=== PATIENT | male | born 1950 | race African-American/Black ===

== ENCOUNTER 2018-05-23 07:30 | Inpatient (IN) | payer MEDICARE, OTHER ==
[~2018-05-23] VITALS: Ht 175.3 cm; Wt 63.5 kg
[2018-07-03] MEDS ORDERED: ceFAZolin sod 1 GM in NS 55 ML IVPB ONE (12:15)
[2018-07-04] VITALS (14 sets, daily range): BP systolic 120–148; BP diastolic 58–83
[2018-07-04 06:41] LABS: APPEARANCE,URINE CLEAR; BILIRUBIN, URINE NEGATIVE (NEGATIVE); COLOR,URINE PALE YELLOW; GLUCOSE, URINE (UA) NEGATIVE (NEGATIVE); KETONES,URINE NEGATIVE (NEGATIVE); LEUKOCYTE ESTERASE ,URINE 1+ (NEGATIVE); NITRITE,URINE NEGATIVE (NEGATIVE); PH,URINE 6 (4.5-8.0); PROTEIN,URINE 1+ (NEGATIVE); UROBILINOGEN,URINE NORMAL MG/DL (0.0-1.0)
[2018-07-04 06:48] LABS: BASOPHILS % (AUTO) 2.1 % (0.0-2.0); EOSINOPHILS % (AUTO) 1.4 % (0.0-3.0); HEMATOCRIT 39.3 % (42.0-52.0); HEMOGLOBIN 13.4 G/DL (14.2-18.0); LYMPHOCYTES % (AUTO) 45.1 % (20.0-45.0); MEAN CORPUSCULAR VOLUME 87 FL (80-99); MONOCYTES % (AUTO) 10.2 % (1.0-10.0); NEUTROPHILS % (AUTO) 41.2 % (45.0-75.0); PLATELET COUNT 213 K/UL (150-450); RED BLOOD COUNT 4.51 M/UL (4.70-6.10); RED CELL DISTRIBUTION WIDTH 11.7 % (11.6-14.8); WHITE BLOOD COUNT 5.2 K/UL (4.8-10.8)
[2018-07-04 06:55] LABS: ANION GAP 10 mmol/L (5-15); BLOOD UREA NITROGEN 21 mg/dL (7-18); CALCIUM 9.8 MG/DL (8.5-10.1); CARBON DIOXIDE 28 MMOL/L (21-32); CHLORIDE 101 MMOL/L (98-107); CREATININE 0.9 MG/DL (0.55-1.30); POTASSIUM 3.7 MMOL/L (3.5-5.1); SODIUM 139 MMOL/L (136-145)
[2018-07-04] MEDS ORDERED: HYDROCHLOROTHIA25 MG ORAL (06:58)
[2018-07-04] MEDS ORDERED: BENAZEPRIL HCL20 MG ORAL (06:58)
[2018-07-04] MEDS ORDERED: MIRTAZAPINE15 M3 ORAL (06:58)
[2018-07-04] MEDS ORDERED: RISPERDAL2 MG ORAL (06:58)
[2018-07-04] MEDS ORDERED: DIPHENHYDRAMINE25 M1 ORAL (06:58)
[2018-07-04] MEDS ORDERED: ceFAZolin sod 1 GM in NS 55 ML IVPB ONE (07:00)
[2018-07-04] MEDS ORDERED: LR 1000ml ONE (07:30)
[2018-07-04] MEDS ORDERED: NS Irrig 1000ml ONE (07:30)
[2018-07-04] MEDS ORDERED: Sterile Water Irrig 1000ml IRRIG ONE (07:30)
[2018-07-04] MEDS ORDERED: Bupivacaine 0.5% Inj 30 ml vial INJ ONE (07:34)
[2018-07-04] MEDS ORDERED: Bupivacaine w/Epi 0.5% 30ml Vial INJ ONE (07:35)
[2018-07-04] MEDS ORDERED: Zemuron 50mg/5ml Inj IV ONE (07:37)
[2018-07-04] MEDS ORDERED: ProvayBlue 5mg/ml 10ml amp INJ ONE (07:45)
--- NOTE | 2018-07-04 07:51 | Pre-Procedure Note/Attestation ---
Pre-Procedure Note/Attestation Complete Prior to Procedure Planned Procedure: not applicable Procedure Narrative: laparoscopic radical prostatectomy Indications for Procedure Pre-Operative Diagnosis: prostate cancer Attestation I attest that I discussed the nature of the procedure; its benefits; risks and complications; and alternatives (and the risks and benefits of such alternatives ), prior to the procedure, with the patient (or the patient's legal help desk representative). I attest that, if there was a reasonable possibility of needing a blood transfusion, the patient (or the patient's legal help desk representative) was given the [facility] standardized written summary, pursuant to the [place] Blood Safety Act ([place] Health and Safety Code # 1645, as amended). I attest that I re-evaluated the patient just prior to the surgery and that there has been no change in the patient's H&P, except as documented below: Karlos Salgado MD Jul 04, 2018 07:51
[2018-07-04] MEDS ORDERED: NS Irrig 1000ml IRRIG ONE (08:22)
[2018-07-04] MEDS ORDERED: Glycopyrrolate 0.2mg/ml 1ml Vial ONE (08:42)
[2018-07-04] MEDS ORDERED: fentaNYL 100 mcg/2 mL IV ONE (08:42)
[2018-07-04] MEDS ORDERED: Neostigmine 1mg/ml 10ml Inj ONE (08:42)
[2018-07-04] MEDS ORDERED: Midazolam 2mg/2ml Inj ONE (08:42)
[2018-07-04] MEDS ORDERED: Dexamethasone 4mg/ml vial ONE (08:42)
[2018-07-04] MEDS ORDERED: Metoclopramide 10mg/2ml Inj ONE (08:42)
[2018-07-04] MEDS ORDERED: Lidocaine 1% MPF 10mg/ml 5ml ONE (08:42)
[2018-07-04] MEDS ORDERED: Propofol 200mg/20ml IV ONE (08:42)
[2018-07-04] MEDS ORDERED: ePHEDrine 50mg/ml Inj ONE (08:42)
--- NOTE | 2018-07-04 09:00 | Anethesia Preoperative Eval ---
Anesthesia Pre-op PMH/ROS General Date of Evaluation: Jul 04, 2018 Time of Evaluation: 07:30 Anesthesiologist: Samantha ASA Score: ASA 2 Mallampati Score Class I : Soft palate, uvula, fauces, pillars visible Class II: Soft palate, uvula, fauces visible Class III: Soft palate, base of uvula visible Class IV: Only hard plate visible Mallampati Classification: Class II Surgeon: Damian Diagnosis: prostate CA Surgical Procedure: Prostectomy laparoscopic radical retropubic Anesthesia History: none Social History: smoking - quit 05/17 Allergies: Coded Allergies: BENAZEPRIL (Verified Allergy, Severe, swelling, 07/03/18) Medications: see eMAR Patient NPO?: Yes NPO Date: Jul 04, 2018 NPO Time: 0500 Past Medical History Cardiovascular: Reports: HTN Pulmonary: Denies: asthma, COPD, ALVARO, other Gastrointestinal/Genitourinary: Reports: other - prostate CA Neurologic/Psychiatric: Reports: depression/anxiety Endocrine: Denies: DM, hypothyroidism, steroids, other HEENT: Denies: cataract (L), cataract (R), glaucoma, PECHANGA (L), PECHANGA (R), other Hematology/Immune: Denies: anemia, DVT, bleeding disorder, other Musculoskeletal/Integumentary: Reports: OA Anesthesia Pre-op Phys. Exam Physician Exam Last Vital Signs Date Time Temp Pulse Resp B/P (MAP) Pulse Ox O2 Delivery O2 Flow Rate FiO2 07/04/18 07:09 97.7 55 20 137/76 (96) 99 07/04/18 06:35 Room Air Constitutional: NAD Neurologic: CN 2-12 intact Cardiovascular: RRR Respiratory: CTA Gastrointestinal: S/NT/ND Airway Exam Mallampati Score: Class II MO: full ROM: full Teeth: missing, other - no teeth upper and lower Dentures: no upper, no lower Anesthesia Pre-op A/P Labs Hematology Test 07/04/18 06:15 White Blood Count 5.2 K/UL (4.8-10.8) Red Blood Count 4.51 M/UL (4.70-6.10) L Hemoglobin 13.4 G/DL (14.2-18.0) L Hematocrit 39.3 % (42.0-52.0) L Mean Corpuscular Volume 87 FL (80-99) Mean Corpuscular Hemoglobin 29.7 PG (27.0-31.0) Mean Corpuscular Hemoglobin Concent 34.1 G/DL (32.0-36.0) Red Cell Distribution Width 11.7 % (11.6-14.8) Platelet Count 213 K/UL (150-450) Mean Platelet Volume 6.8 FL (6.5-10.1) Neutrophils (%) (Auto) 41.2 % (45.0-75.0) L Lymphocytes (%) (Auto) 45.1 % (20.0-45.0) H Monocytes (%) (Auto) 10.2 % (1.0-10.0) H Eosinophils (%) (Auto) 1.4 % (0.0-3.0) Basophils (%) (Auto) 2.1 % (0.0-2.0) H Coagulation Test 07/04/18 06:15 Prothrombin Time 10.7 SEC (9.30-11.50) Prothromb Time International Ratio 1.0 (0.9-1.1) Activated Partial Thromboplast Time 28 SEC (23-33) Chemistry Test 07/04/18 06:15 Sodium Level 139 MMOL/L (136-145) Potassium Level 3.7 MMOL/L (3.5-5.1) Chloride Level 101 MMOL/L (98-107) Carbon Dioxide Level 28 MMOL/L (21-32) Anion Gap 10 mmol/L (5-15) Blood Urea Nitrogen 21 mg/dL (7-18) H Creatinine 0.9 MG/DL (0.55-1.30) Estimat Glomerular Filtration Rate > 60 mL/min (>60) Glucose Level 99 MG/DL (74-106) Calcium Level 9.8 MG/DL (8.5-10.1) Studies Pre-op Studies: EKG - NSB 55 bpm Risk Assessment & Plan Assessment: A&O x 3 Plan: GENERAL ETT Status Change Before Surgery: Mercy Phipps CRNA Jul 04, 2018 09:00
--- NOTE | 2018-07-04 09:02 | Immediate Post-Op Evaluation ---
Immediate Post-Op Evalulation Immediate Post-Op Evalulation Procedure: Prostectomy Laparoscopic Radical Retropubic Date of Evaluation: Jul 04, 2018 Time of Evaluation: 10:10 IV Fluids: LR 2500ml Blood Products: 0 Estimated Blood Loss: 100 ml Urinary Output: continuous irrigation during SX Blood Pressure Systolic: 138 Blood Pressure Diastolic: 76 Pulse Rate: 73 Respiratory Rate: 18 O2 Sat by Pulse Oximetry: 100 Temperature (Fahrenheit): 97.2 Pain Score (1-10): 0 Nausea: No Vomiting: No Complications none noted Patient Status: awake, reacts, patent Hydration Status: adequate Drug: Ancef 1 gm IV Given Within 1 Hr of Incision: Yes Time Given: 08:00 Mercy Haro CRNA Jul 04, 2018 09:02
--- NOTE | 2018-07-04 09:02 | 48 Hour Post Anesthesia Eval ---
Post Anesthesia Evaluation Procedure: Prostectomy Laparoscopic Radical Retropubic Date of Evaluation: Jul 04, 2018 Time of Evaluation: 13:30 Blood Pressure Systolic: 126 0: 68 Pulse Rate: 72 Respiratory Rate: 18 Temperature (Fahrenheit): 98.4 O2 Sat by Pulse Oximetry: 99 Airway: patent Nausea: No Vomiting: No Hydration Status: adequate Mental Status/LOC: patient returned to baseline Post-Anesthesia Complications: none Follow-up care needed: patient intructions given Mercy Haro CRNA Jul 04, 2018 09:02
[2018-07-04] MEDS ORDERED: Ketorolac 30mg Inj ONE (09:43)
--- NOTE | 2018-07-04 10:23 | Brief Operative Note ---
Immediate Post Operative Note Operative Note Pre-op Diagnosis: prostate cancer Procedure: Laparoscopic radical prostatectomy Post-op Diagnosis: same Post-op Diagnosis: same as pre-op Surgeon: Robert Salgado Anesthesia: general Specimen: yes Complications: none Condition: stable Fluids: 3000 Estimated Blood Loss: minimal Implant(s) used?: No Karlos Salgado MD Jul 04, 2018 10:23
[2018-07-04] MEDS ORDERED: Hydromorphone 0.5mg/0.5ml inj IVP PRN (10:30)
[2018-07-04] MEDS ORDERED: HYDROmorphone 1mg/ml Carpuject IVP PRN (10:30)
[2018-07-04] MEDS ORDERED: Ketorolac 30mg Inj IV PRN (10:30)
[2018-07-04] MEDS ORDERED: Norco 5mg/325mg tab ORAL PRN (10:30)
[2018-07-04] MEDS ORDERED: DiphenhydrAMINE 50mg/ml Inj IVP PRN (10:30)
[2018-07-04 11:24] LABS: BASOPHILS % (AUTO) 0.7 % (0.0-2.0); EOSINOPHILS % (AUTO) 0.2 % (0.0-3.0); HEMATOCRIT 36.9 % (42.0-52.0); HEMOGLOBIN 12.6 G/DL (14.2-18.0); LYMPHOCYTES % (AUTO) 12.5 % (20.0-45.0); MEAN CORPUSCULAR VOLUME 89 FL (80-99); MONOCYTES % (AUTO) 4.6 % (1.0-10.0); PLATELET COUNT 189 K/UL (150-450); RED BLOOD COUNT 4.16 M/UL (4.70-6.10); RED CELL DISTRIBUTION WIDTH 11.9 % (11.6-14.8); WHITE BLOOD COUNT 9.1 K/UL (4.8-10.8)
[2018-07-04 11:34] LABS: ANION GAP 10 mmol/L (5-15); BLOOD UREA NITROGEN 19 mg/dL (7-18); CARBON DIOXIDE 26 MMOL/L (21-32); CHLORIDE 103 MMOL/L (98-107); POTASSIUM 3.5 MMOL/L (3.5-5.1); SODIUM 139 MMOL/L (136-145)
--- NOTE | 2018-07-04 11:42 | Diagnostic Imaging Report ---
Indication: Shortness of breath Technique: One view of the chest Comparison: none Findings: . Granuloma is seen in the right midlung. Possible small calcific granulomatous nodes are seen in the left aortopulmonary window. Lungs and pleural spaces are clear. The heart size is normal. Impression: No acute process Evidence of old granulomatous disease
[2018-07-04] MEDS: D5 1/2NS w/KCl 20mEq 1,000 ML IV SCH ×2 (12:46→23:00)
[2018-07-04] MEDS: ceFAZolin sod 1 GM in D5W 55 ML IV SCH (16:23)
--- NOTE | 2018-07-04 16:29 | Cardiology Report ---
APPROVED REPORT EKG Measurement Heart [id number] PA 188P62 [id number] Sinus bradycardia Minimal voltage criteria for LVH, may be normal variant Borderline ECG
[2018-07-04] MEDS: Docusate 100mg cap ORAL SCH (17:23)
--- NOTE | 2018-07-04 21:15 | Operative Note - Dictated ---
DATE OF OPERATION: 07/04/2018 PREOPERATIVE DIAGNOSIS: Prostate cancer. POSTOPERATIVE DIAGNOSIS: Prostate cancer. OPERATION: Laparoscopic radical prostatectomy. OPERATED BY: Karlos Salgado M.D. LIVE STUDY MANAGER: Dr. Tyree Gonzalez. FINDINGS: Enlarged prostate. INDICATIONS FOR SURGERY: The patient was diagnosed with high-grade prostate cancer. Treatment options were in detail explained to him including radiation, hormones, watchful waiting surgery, and other modalities. He decided to go for surgical procedure. He understands all potential complications and signed a consent. He was brought to the operating room, placed in supine position, and prepped and draped in standard fashion. Dr. Gonzalez started the procedure with placement of the trocars, two 12s and three 5s and creation of pneumoperitoneum with a Veress needle. He also performed lysis of the adhesions in the left gutter sigmoid and descending colon. Gaining access were made to perform prostatectomy. Dissection then was carried posteriorly dividing seminal vesicles and vas deferens and Denonvilliers' fascia was opened. Then, we dissected anteriorly lateral to the umbilical ligaments bladder from the pubis. Endopelvic fascia was opened with Harmonic Scalpel. Endo-YOSEF was used for dorsal venous complex. Bladder neck sparing technique was used to separate the bladder from the prostate and prostate was carefully resected preserving both neurovascular bundles removed for pathologic examination. Anastomosis was made over 20-[place] Jovel catheter with a running 2-0 Monocryl suture watertight. Specimen was removed. Sponge count and instrument was correct. Estimated blood loss was 50 mL. Karlos Salgado M.D. DR: NICHOLE JOB#: [id number] CC:
[2018-07-05 00:04] VITALS: BP 116/55
[2018-07-05] MEDS: ceFAZolin sod 1 GM in D5W 55 ML IV SCH (01:00)
[2018-07-05] MEDS: D5 1/2NS w/KCl 20mEq 1,000 ML IV SCH (03:50)
[2018-07-05 04:38] VITALS: BP 140/62
[2018-07-05 06:40] LABS: ANION GAP 8 mmol/L (5-15); BASOPHILS % (AUTO) 0.8 % (0.0-2.0); BLOOD UREA NITROGEN 18 mg/dL (7-18); CALCIUM 8.4 MG/DL (8.5-10.1); CARBON DIOXIDE 27 MMOL/L (21-32); CHLORIDE 104 MMOL/L (98-107); EOSINOPHILS % (AUTO) 0.3 % (0.0-3.0); HEMATOCRIT 31.2 % (42.0-52.0); HEMOGLOBIN 10.8 G/DL (14.2-18.0); LYMPHOCYTES % (AUTO) 23.6 % (20.0-45.0); MEAN CORPUSCULAR VOLUME 87 FL (80-99); MONOCYTES % (AUTO) 11.3 % (1.0-10.0); NEUTROPHILS % (AUTO) 64.1 % (45.0-75.0); PLATELET COUNT 159 K/UL (150-450); POTASSIUM 3.4 MMOL/L (3.5-5.1); RED CELL DISTRIBUTION WIDTH 11.5 % (11.6-14.8); SODIUM 139 MMOL/L (136-145); WHITE BLOOD COUNT 6.2 K/UL (4.8-10.8)
[2018-07-05 08:00] VITALS: BP 142/69
[2018-07-05] MEDS: Docusate 100mg cap ORAL SCH (08:29)
[2018-07-05 12:00] VITALS: BP 165/72
[2018-07-05] MEDS ORDERED: Levofloxacin 500mg tab ORAL ONE (13:00)
[2018-07-05 13:08] VITALS: BP 154/78
[2018-07-05] MEDS ORDERED: COLACE100 MG ORAL (14:13)
[2018-07-05] MEDS ORDERED: Tubing IV Secondary IV ONE (15:06)
[2018-07-05 15:20] VITALS: BP 153/82
--- NOTE | 2018-07-05 19:15 | Operative Note - Dictated ---
DATE OF OPERATION: 07/05/2018 NOTE: "POOR AUDIO QUALITY" OPERATING SURGEON: Tyree Gonzalez M.D. SQL ENGINEER: Karlos Salgado M.D. ANESTHESIA: General endotracheal. PREOPERATIVE DIAGNOSIS: Intraabdominal adhesions. POSTOPERATIVE DIAGNOSIS: Intraabdominal adhesions. PROCEDURE PERFORMED: Laparoscopic lysis of adhesions. BACKGROUND: The patient is a 67-year-old male with prostate cancer. During the laparoscopic prostatectomy, intraabdominal adhesions between the cecum and anterior abdominal wall were found that precluded the safe placement of the right-sided trocar and I was requested by surgical urologist, Dr. Karlos Salgado, to perform lysis of adhesions. OPERATIVE FINDINGS: Massive dense adhesions between the cecum, small bowel, and the right colon to the anterior abdominal wall precluding the safe placement of the trocars. OPERATIVE PROCEDURE: The patient was identified, brought to the operating room, and positioned supine. General endotracheal anesthesia was induced. Abdomen was prepped and draped in usual sterile fashion. Dr. Salgado induced pneumoperitoneum by placing Veress needle through the infraumbilical incision. They also put a trocar in the midline and then introduced a 0-degree scope. We visualized the content of the intraabdominal cavity. At that time, we found the above-mentioned findings. We placed two additional 5 mm trocars in the left abdomen and at that moment, I scrubbed in. Using sharp dissection, I grasped the bowel and divided the adhesions between the cecum, small bowel, and anterior abdominal wall, which required proximal mobilization of the right colon. By completion of this maneuver, free space for placement of the right-sided trocars was gained. Two trocars were placed by me in the right abdomen, one 5 mm trocar just medial to anterior superior iliac spine and 12 mm trocar in the midclavicular line below the umbilicus. The rest of the procedure was performed by Dr. Karlos Salgado and he will dictate his report separately. Tyree Gonzalez M.D. DREdita Diallo JOB#: [id number] CC:
--- NOTE | 2018-07-06 09:39 | Discharge Summary ---
Discharge Summary Discharge Summary _ DATE OF ADMISSION: 07/04/2018 DATE OF DISCHARGE: 07/05/2018 CO-SURGEON: Dr. Tyree Gonzalez BRIEF HOSPITAL COURSE: Patient is a 67-year-old male, diagnosed with high-grade prostate cancer. Treatment options were explained including radiation, hormones, watchful waiting surgery and other modalities. He decided to undergo surgical procedure. He was admitted on 07/04/2018 and underwent laparoscopic radical prostatectomy, assisted by Dr. Gonzalez who performed laparoscopic lysis of intra-abdominal adhesions. There were massive dense adhesions between the cecum, small bowel, and right colon to the anterior abdominal wall precluding the safe placement of the trochars. He tolerated laparoscopic prostatectomy well. Postoperatively, he was admitted for postop care. Diet was advanced. He was given levofloxacin. He was instructed on how to use and empty the leg bag. He was given PT mobility. He was eventually discharged home. FINAL DIAGNOSES: Prostate CA status post laparoscopic radical prostatectomy DISPOSITION: Patient was discharged home. DISCHARGE MEDICATIONS: Refer to Discharge Medication List. DISCHARGE INSTRUCTIONS: Follow up in a week. I have been assigned to dictate discharge summary on this account, and I was not involved in the patient's management. Rehana Evans NP Jul 06, 2018 09:39
== END 2018-07-05 15:25 | disposition home or self-care (01) | DRG 708 ==
LOC: SDSOVERFLO 07-04 05:52 → 3E 07-04 11:36 → UNDODISIN 07-05 11:00
PROC: 0DNW4ZZ Release Peritoneum, Percutaneous Endoscopic Approach (ICD-10-PCS; principal; 2018-07-04 07:30)
PROC: 0VT34ZZ Resection of Bilateral Seminal Vesicles, Percutaneous Endoscopic Approach (ICD-10-PCS; principal; 2018-07-04 07:30)
PROC: 0VT04ZZ Resection of Prostate, Percutaneous Endoscopic Approach (ICD-10-PCS; principal; 2018-07-04 07:30)
DX: C61 Malignant neoplasm of prostate (principal); K66.0 Peritoneal adhesions (postprocedural) (postinfection); F17.200 Nicotine dependence, unspecified, uncomplicated; I10 Essential (primary) hypertension; Z88.8 Allergy status to other drugs, medicaments and biological substances
CPT/HCPCS: 36415; 71045; 80048; 81003; 85025; 85610; 85730; 86850; 86900; 86901; 87081; 93005; 94003; 94150; J2250; J2405; J2710; J2765